=== PATIENT | female | born 1990 | race American Indian/Alaskan Native ===

== ENCOUNTER 2019-09-30 09:38 | Emergency (ER) | payer MEDICAID ==
[2019-09-30 09:46] VITALS: BP 141/86
== END 2019-09-30 09:45 | disposition left against medical advice (07) ==
LOC: ED 09:38
DX: R21 Rash and other nonspecific skin eruption (principal); Z53.21 Procedure and treatment not carried out due to patient leaving prior to being seen by health care provider